=== PATIENT | male | born 1980 | race Caucasian/White ===

== ENCOUNTER 2024-08-10 21:24 | Emergency (ER) | payer MEDICARE, OTHER ==
[~2024-08-10] VITALS: Ht 170.2 cm; Wt 73.0 kg
[2024-08-10 22:10] VITALS: BP 132/82; PULSE 98; RESP 16; TEMP 97.8; O2SAT 100
== END 2024-08-10 22:17 | disposition left against medical advice (07) ==
LOC: ER 21:24
DX: R06.02 Shortness of breath (principal); Z53.21 Procedure and treatment not carried out due to patient leaving prior to being seen by health care provider
CPT/HCPCS: 93005